=== PATIENT | female | born 1990 | race Caucasian/White ===

== ENCOUNTER 2016-06-05 16:52 | Emergency (ER) | payer MEDICARE, MEDICAID ==
[~2016-06-05] VITALS: Ht 162.6 cm; Wt 63.0 kg
[~2016-06-05 16:52] MED LIST: CALC300T4 PO; DIAZ5TAB PO; MIDO5TAB PO; NO MEDS
[2016-06-05 17:07] VITALS: BP 124/87
[2016-06-05] MEDS ORDERED: KETOROLAC 30 MG/1 ML IVPush ONE ×2 (17:30→18:00)
[2016-06-05] MEDS ORDERED: METOCLOPRAMIDE 5 MG/ML, 2ML IVPush ONE (17:30)
[2016-06-05] MEDS ORDERED: SODIUM CHLORIDE FLUSH 10ML SYR IVF ONE (17:30)
[2016-06-05] MEDS ORDERED: DIPHENHYDRAMINE 50 MG/ML, 1ML IVPush ONE (17:30)
[2016-06-05 17:33] LABS: HEMOGLOBIN 11.4 g/dL (11.7-16.4)
[2016-06-05 17:43] LABS: BLOOD UREA NITROGEN 27 mg/dL (7-18)
[2016-06-05] MEDS ORDERED: SODIUM CHLORIDE 0.9%, 500ML IVBOLUS ONE (18:00)
== END 2016-06-05 17:56 | disposition left against medical advice (07) ==
LOC: ED 17:20
DX: R51 Headache (principal); R11.0 Nausea; N19 Unspecified kidney failure; F17.210 Nicotine dependence, cigarettes, uncomplicated; Z88.0 Allergy status to penicillin; Z88.5 Allergy status to narcotic agent; Z88.1 Allergy status to other antibiotic agents
CPT/HCPCS: 36415; 80048; 82040; 85025; 99284

== ENCOUNTER 2016-09-14 04:03 | Emergency (ER) | payer MEDICARE, MEDICAID ==
[~2016-09-14] VITALS: Ht 162.6 cm; Wt 59.1 kg
[2016-09-14] MEDS ORDERED: SODIUM CHLORIDE 0.9% 1,000 ML IV ONE ×2 (05:16→06:25)
[2016-09-14] MEDS ORDERED: ONDANSETRON 2MG/ML, 2ML IVPush ONE (05:30)
[2016-09-14] MEDS ORDERED: MAALOX/HYOSCYAMINE/LIDOCAINE 45 ML BOTTLE PO ONE (05:30)
[2016-09-14] MEDS ORDERED: FAMOTIDINE 20 MG TABLET PO ONE (05:30)
[2016-09-14] MEDS ORDERED: ONDANSETRON ODT 4 MG PO ONE (05:30)
[2016-09-14] MEDS ORDERED: SODIUM CHLORIDE FLUSH 10ML SYR IVF ONE (05:30)
[2016-09-14] MEDS ORDERED: FAMOTIDINE 20 MG/2 ML IVP ONE (05:30)
[2016-09-14] MEDS ORDERED: FAMOTIDINE 20 MG TABLET ONE (05:32)
[2016-09-14] MEDS ORDERED: MAALOX/HYOSCYAMINE/LIDOCAINE 45 ML BOTTLE ONE (05:33)
[2016-09-14] MEDS ORDERED: ONDANSETRON ODT 4 MG ONE (05:33)
[2016-09-14 06:05] LABS: BLOOD UREA NITROGEN 42 mg/dL (7-18)
[2016-09-14] MEDS ORDERED: HYDROmorphone 1 MG/ML, 1ML ONE (06:08)
[2016-09-14 06:11] LABS: ASPARTATE AMINO TRANSFERASE 13 U/L (15-37)
[2016-09-14] MEDS: HYDROmorphone 1 MG/ML, 1ML IM ONE ×2 (06:29→06:30)
[2016-09-14 09:50] VITALS: BP 86/56
== END 2016-09-14 10:16 | disposition home or self-care (01) ==
LOC: ED 07:56
DX: R10.13 Epigastric pain (principal); K85.00 Idiopathic acute pancreatitis without necrosis or infection; N18.6 End stage renal disease; Z99.2 Dependence on renal dialysis
CPT/HCPCS: 36415; 74022; 76700; 80053; 83690; 84703; 85025; 96372; 99285; J1170; Q0162

== ENCOUNTER 2017-02-20 12:36 | Day surgery (SDC) | payer MEDICARE, MEDICAID ==
[~2017-02-20] VITALS: Ht 162.6 cm; Wt 56.7 kg
[2017-02-20 13:47] VITALS: BP 88/56
[2017-02-20] MEDS ORDERED: SODIUM CHLORIDE 0.9% 1,000 ML IV SCH (13:50)
[2017-02-20 14:00] LABS: HEMOGLOBIN 14.5 g/dL (11.7-16.4); WHITE BLOOD COUNT 5.9 x10^3/uL (3.4-10)
[2017-02-20 14:08] LABS: BLOOD UREA NITROGEN 35 mg/dL (7-18)
[2017-02-20] MEDS ORDERED: PROTAMINE SULFATE 10 MG/ML, 25ML ONE (16:53)
[2017-02-20] MEDS ORDERED: MIDAZOLAM 1 MG/ML, 5ML ONE (16:53)
[2017-02-20] MEDS ORDERED: NALOXONE 1 MG/ML, 2ML ONE (16:53)
[2017-02-20] MEDS ORDERED: FLUMAZENIL 0.1 MG/1 ML, 5ML ONE (16:53)
[2017-02-20] MEDS ORDERED: HEPARIN 1,000 UNITS/ML, 10ML ONE (16:53)
[2017-02-20] MEDS ORDERED: FENTANYL PF 100 MCG/2ML ONE (16:53)
[2017-02-20] MEDS ORDERED: NITROGLYCERIN 5 MG/ML, 10ML ONE (16:53)
[2017-02-20] MEDS ORDERED: VISIPAQUE 270 MG/ML, 50ML BOTTLE ONE (17:00)
[2017-02-20] MEDS ORDERED: LIDOCAINE 2%, 20ML ONE (17:13)
[2017-02-20] MEDS ORDERED: DIPHENHYDRAMINE 50 MG/ML, 1ML ONE (17:16)
== END 2017-02-20 18:25 ==
LOC: OUT 12:36
PROVIDERS: ATTEND Surgery
DX: T82.590A Other mechanical complication of surgically created arteriovenous fistula, initial encounter (principal); Y83.8 Other surgical procedures as the cause of abnormal reaction of the patient, or of later complication, without mention of misadventure at the time of the procedure; Y92.89 Other specified places as the place of occurrence of the external cause; N18.6 End stage renal disease; Z88.6 Allergy status to analgesic agent; Z91.010 Allergy to peanuts; Z88.8 Allergy status to other drugs, medicaments and biological substances; Z91.09 Other allergy status, other than to drugs and biological substances
CPT/HCPCS: 36415; 36901; 36907; 80048; 85025; 99156; 99157; C1725; C1751; C1769; C1894; J1200; J2250; J3010; J3490; J7030; Q9966; J1644; J2720; J2310

== ENCOUNTER 2017-05-27 13:36 | Observation (INO) | payer MEDICARE, MEDICAID ==
[~2017-05-27] VITALS: Ht 162.6 cm; Wt 60.3 kg
[2017-05-27] MEDS ORDERED: LORazepam 2 MG/ML, 1ML ONE (13:43)
[2017-05-27] MEDS ORDERED: LORazepam 2 MG/ML, 1ML IVPush STA (13:50)
[2017-05-27] MEDS ORDERED: SODIUM CHLORIDE FLUSH 10ML SYR IVF ONE (14:00)
[2017-05-27] MEDS ORDERED: SODIUM CHLORIDE 0.9% 1,000ML IVBOLUS ONE (14:00)
[2017-05-27 14:13] LABS: BASOPHILS # (AUTO) 0.04 x10^3/uL (0-0.1); BASOPHILS % (AUTO) 1 % (0-1); EOSINOPHILS # (AUTO) 0.16 x10^3/uL (0-0.4); EOSINOPHILS % (AUTO) 3 % (1-7); LYMPHOCYTES % (AUTO) 22 % (22-44); MD NO; MEAN CORPUSCULAR HEMOGLOBIN 34.5 pg (27.0-34.8); MEAN CORPUSCULAR HGB CONC 34.2 g/dL (32.4-35.8); MEAN PLATELET VOLUME 8.1 fL (7.4-10.4); MONOCYTES # (AUTO) 0.43 x10^3/uL (0.2-0.8); MONOCYTES % (AUTO) 7 % (2-9); NEUTROPHILS % (AUTO) 68 % (42-75); PLATELET COUNT 162 x10^3/uL (130-400); RED BLOOD COUNT 3.77 x10^6/uL (3.82-5.3); RED CELL DISTRIBUTION WIDTH 13.3 % (9.6-15.2)
[2017-05-27 14:24] LABS: ALBUMIN 4.3 g/dL (3.4-5.0); ANION GAP 12 mmol/L (5-15); CALCIUM 6.9 mg/dL (8.5-10.1); CHLORIDE 97 mmol/L (98-107)
[2017-05-27 14:30] LABS: FREE T4 (FREE THYROXINE) 0.94 ng/dL (0.76-1.46)
[2017-05-27] MEDS ORDERED: SODIUM POLYSTYRENE SULFONATE ORAL SUSP ONE ×2 (14:57→15:15)
[2017-05-27] MEDS ORDERED: DEXTROSE 50%, 50ML SYRINGE ONE (14:57)
[2017-05-27] MEDS ORDERED: CALCIUM CHLORIDE 10%, 10ML SYR ONE (14:57)
[2017-05-27] MEDS ORDERED: SODIUM BICARB 8.4%, 50ML SYRINGE ONE (14:57)
[2017-05-27] MEDS ORDERED: DEXTROSE 50%, 50ML SYRINGE IVPush ONE (15:00)
[2017-05-27] MEDS ORDERED: SODIUM POLY SULFONATE UDC 15 GM/60 ML PO ONE (15:00)
[2017-05-27] MEDS ORDERED: ALBUTEROL 0.5%, 20ML NPPB ONE (15:00)
[2017-05-27] MEDS ORDERED: SODIUM BICARB 8.4%, 50ML SYRINGE IVPush ONE (15:00)
[2017-05-27] MEDS ORDERED: INSULIN REGULAR 100 UNITS/ML, 3ML VIAL IVPush ONE (15:00)
[2017-05-27] MEDS ORDERED: CALCIUM CHLORIDE 10%, 10ML SYR IVPush ONE (15:00)
[2017-05-27] MEDS ORDERED: LABETALOL 5MG/ML, 20ML IVPush PRN (15:30)
[2017-05-27] MEDS ORDERED: BISACODYL 10 MG SUPP PR PRN (15:30)
[2017-05-27] MEDS ORDERED: DOCUSATE 100 MG CAPSULE PO PRN (15:30)
[2017-05-27] MEDS ORDERED: ONDANSETRON 2MG/ML, 2ML IVPush PRN (15:30)
[2017-05-27] MEDS ORDERED: ONDANSETRON ODT 4 MG PO PRN (15:30)
[2017-05-27 16:00] VITALS: BP 82/42
[2017-05-27 16:18] LABS: ANION GAP 14 mmol/L (5-15); CALCIUM 7.1 mg/dL (8.5-10.1); CHLORIDE 102 mmol/L (98-107); IRON LEVEL 34 mcg/dL (50-170); TOTAL IRON BINDING CAPACITY 183 mcg/dL (250-450)
[2017-05-27 16:19] LABS: % IRON SATURATION 19 % (20-55)
[2017-05-27] MEDS ORDERED: HYDROmorphone 1 MG/ML, 1ML IV ONE (17:00)
[2017-05-27 17:30] VITALS: BP 93/67
[2017-05-27] MEDS ORDERED: KETOROLAC 30 MG/1 ML ONE (20:17)
[2017-05-27] MEDS ORDERED: KETOROLAC 30 MG/1 ML IVPush PRN (20:30)
[2017-05-28 08:06] VITALS: BP 91/62
== END 2017-05-28 15:00 | disposition home or self-care (01) ==
LOC: ED 14:12 → UNDOADMIN 14:50 → EDIP 14:50 → 4WST 15:30 → EDIP 15:47 → 4WST 15:47 → UNDODISIN 05-28 10:20
PROVIDERS: ADMIT Internal Medicine; ATTEND Internal Medicine
DX: N18.6 End stage renal disease (principal); E87.5 Hyperkalemia; I95.9 Hypotension, unspecified; E87.1 Hypo-osmolality and hyponatremia; D53.9 Nutritional anemia, unspecified; R11.0 Nausea; F17.210 Nicotine dependence, cigarettes, uncomplicated; R17 Unspecified jaundice; Z99.2 Dependence on renal dialysis
CPT/HCPCS: 36415; 80048; 82040; 82140; 83540; 83550; 84439; 84443; 84481; 84703; 85025; 93005; 96361; 96374; 96375; 99291; G0378; J1170; J1885; J2060; J2405; J7030

== ENCOUNTER 2017-06-11 09:45 | Inpatient (IN) | payer MEDICARE, MEDICAID ==
[~2017-06-11] VITALS: Ht 162.6 cm; Wt 58.0 kg
[2017-06-11] MEDS ORDERED: CALC200T3 PO (10:54)
[2017-06-11] MEDS ORDERED: ONDANSETRON ODT 4 MG PO ONE (11:30)
[2017-06-11 11:31] LABS: BASOPHILS # (AUTO) 0.02 x10^3/uL (0-0.1); BASOPHILS % (AUTO) 0 % (0-1); EOSINOPHILS # (AUTO) 0.18 x10^3/uL (0-0.4); EOSINOPHILS % (AUTO) 3 % (1-7); LYMPHOCYTES % (AUTO) 26 % (22-44); MD NO; MEAN CORPUSCULAR HEMOGLOBIN 34.5 pg (27.0-34.8); MEAN CORPUSCULAR HGB CONC 34.3 g/dL (32.4-35.8); MEAN CORPUSCULAR VOLUME 100.5 fL (80-100); MEAN PLATELET VOLUME 7.9 fL (7.4-10.4); MONOCYTES # (AUTO) 0.32 x10^3/uL (0.2-0.8); MONOCYTES % (AUTO) 6 % (2-9); NEUTROPHILS # (AUTO) 3.84 x10^3/uL (1.8-6.8); NEUTROPHILS % (AUTO) 66 % (42-75); PLATELET COUNT 180 x10^3/uL (130-400); RED BLOOD COUNT 3.77 x10^6/uL (3.82-5.3); RED CELL DISTRIBUTION WIDTH 12.6 % (9.6-15.2)
[2017-06-11 11:42] LABS: ALANINE AMINOTRANSFERASE 18 U/L (12-78); ALBUMIN 4.7 g/dL (3.4-5.0); ANION GAP 17 mmol/L (5-15); CALCIUM 6.9 mg/dL (8.5-10.1); CHLORIDE 96 mmol/L (98-107)
[2017-06-11] MEDS ORDERED: ONDANSETRON ODT 4 MG ONE (11:43)
[2017-06-11] MEDS ORDERED: OXYcodone/APAP 10/325MG TABLET ONE (11:43)
[2017-06-11 11:44] LABS: ALKALINE PHOSPHATASE 112 U/L (45-117); BILIRUBIN,TOTAL 0.4 mg/dL (0.2-1.0); TOTAL PROTEIN 8.7 g/dL (6.4-8.2)
[2017-06-11] MEDS: OXYcodone/APAP 10/325MG TABLET PO ONE ×2 (11:54→11:55)
[2017-06-11] MEDS ORDERED: ONDANSETRON 2MG/ML, 2ML IVPush PRN (14:30)
[2017-06-11] MEDS ORDERED: ONDANSETRON ODT 4 MG PO PRN (14:30)
[2017-06-11] MEDS ORDERED: ACETAMINOPHEN 325 MG TABLET PO PRN (14:30)
[2017-06-11 14:42] VITALS: BP 98/66
[2017-06-11] MEDS: HYDROmorphone 2 MG/ML, 1ML IVPush PRN ×3 (14:50→21:55)
[2017-06-11] MEDS ORDERED: ALBUMIN HUMAN 25% 100 ML IV PRN (15:30)
[2017-06-11] MEDS ORDERED: ALBUMIN HUMAN 25% 50 ML IV PRN (15:30)
[2017-06-11] MEDS: ONDANSETRON 2MG/ML, 2ML IVPush PRN (18:13)
[2017-06-11 19:23] VITALS: BP 90/56
[2017-06-12] MEDS: ONDANSETRON 2MG/ML, 2ML IVPush PRN (00:19)
[2017-06-12 01:51] VITALS: BP 79/49
[2017-06-12] MEDS: HYDROmorphone 2 MG/ML, 1ML IVPush PRN (02:00)
[2017-06-12] MEDS ORDERED: CALCIUM CARBONATE 500 MG TAB.CHEW PO SCH (09:00)
== END 2017-06-12 03:25 | disposition left against medical advice (07) | DRG 640 ==
LOC: ED 12:06 → EDIP 12:07 → ED 12:16 → 4WST 13:29
PROVIDERS: ADMIT Hospitalist; ATTEND Hospitalist
DX: E87.5 Hyperkalemia (principal); N18.6 End stage renal disease; E83.51 Hypocalcemia; N25.81 Secondary hyperparathyroidism of renal origin; E83.52 Hypercalcemia; D63.8 Anemia in other chronic diseases classified elsewhere; E89.0 Postprocedural hypothyroidism; F41.1 Generalized anxiety disorder; Z99.2 Dependence on renal dialysis; Z87.891 Personal history of nicotine dependence; Z91.19 Patient's noncompliance with other medical treatment and regimen; Z80.8 Family history of malignant neoplasm of other organs or systems; Z76.5 Malingerer [conscious simulation]
CPT/HCPCS: 36415; 71045; 80053; 82330; 83605; 85025; 87040; 93005; 99285; J1170; J2405; Q0162

== ENCOUNTER 2017-07-20 12:49 | Emergency (ER) | payer MEDICARE, MEDICAID ==
[~2017-07-20] VITALS: Ht 154.9 cm; Wt 58.2 kg
[~2017-07-20 12:49] MED LIST changes: +CALC200T3 PO
[2017-07-20 13:00] VITALS: BP 91/58
[2017-07-20 15:51] LABS: BASOPHILS # (AUTO) 0.04 x10^3/uL (0-0.1); BASOPHILS % (AUTO) 1 % (0-1); EOSINOPHILS # (AUTO) 0.19 x10^3/uL (0-0.4); EOSINOPHILS % (AUTO) 4 % (1-7); LYMPHOCYTES # (AUTO) 1.13 x10^3/uL (1-3.4); LYMPHOCYTES % (AUTO) 22 % (22-44); MD NO; MEAN CORPUSCULAR HEMOGLOBIN 33.3 pg (27.0-34.8); MEAN CORPUSCULAR HGB CONC 33.8 g/dL (32.4-35.8); MEAN CORPUSCULAR VOLUME 98.3 fL (80-100); MEAN PLATELET VOLUME 7.4 fL (7.4-10.4); MONOCYTES # (AUTO) 0.38 x10^3/uL (0.2-0.8); MONOCYTES % (AUTO) 7 % (2-9); NEUTROPHILS # (AUTO) 3.42 x10^3/uL (1.8-6.8); NEUTROPHILS % (AUTO) 66 % (42-75); PLATELET COUNT 165 x10^3/uL (130-400); RED BLOOD COUNT 3.76 x10^6/uL (3.82-5.3); RED CELL DISTRIBUTION WIDTH 12.8 % (9.6-15.2)
[2017-07-20 16:10] LABS: ALANINE AMINOTRANSFERASE 11 U/L (12-78); ALBUMIN 3.8 g/dL (3.4-5.0); ANION GAP 9 mmol/L (5-15); CALCIUM 8.4 mg/dL (8.5-10.1); CHLORIDE 98 mmol/L (98-107); CREATININE 6.28 mg/dL (0.55-1.02)
[2017-07-20 16:15] LABS: ALKALINE PHOSPHATASE 84 U/L (45-117); BILIRUBIN,TOTAL 0.4 mg/dL (0.2-1.0); TOTAL PROTEIN 7.3 g/dL (6.4-8.2)
== END 2017-07-20 16:33 | disposition home or self-care (01) ==
LOC: ED 15:20
DX: S39.012A Strain of muscle, fascia and tendon of lower back, initial encounter (principal); G44.40 Drug-induced headache, not elsewhere classified, not intractable; R11.10 Vomiting, unspecified; N18.6 End stage renal disease; Z99.2 Dependence on renal dialysis; X58.XXXA Exposure to other specified factors, initial encounter; Y93.89 Activity, other specified; Y92.89 Other specified places as the place of occurrence of the external cause; Y99.8 Other external cause status
CPT/HCPCS: 36415; 80053; 84703; 85025; 99284

== ENCOUNTER 2017-07-29 00:53 | Emergency (ER) | payer MEDICARE, MEDICAID ==
[~2017-07-29] VITALS: Ht 154.9 cm; Wt 57.9 kg
[2017-07-29] MEDS ORDERED: ONDANSETRON ODT 4 MG PO ONE (02:00)
[2017-07-29] MEDS ORDERED: DICYCLOMINE 10 MG/ML, 2ML IM ONE (02:00)
[2017-07-29] MEDS ORDERED: PROMETHAZINE 25 MG/ML, 1ML IM ONE (02:00)
[2017-07-29 02:06] LABS: BASOPHILS # (AUTO) 0.02 x10^3/uL (0-0.1); BASOPHILS % (AUTO) 0 % (0-1); EOSINOPHILS # (AUTO) 0.24 x10^3/uL (0-0.4); EOSINOPHILS % (AUTO) 5 % (1-7); LYMPHOCYTES # (AUTO) 1.64 x10^3/uL (1-3.4); LYMPHOCYTES % (AUTO) 34 % (22-44); MD NO; MEAN CORPUSCULAR HEMOGLOBIN 34.1 pg (27.0-34.8); MEAN CORPUSCULAR HGB CONC 34.7 g/dL (32.4-35.8); MEAN CORPUSCULAR VOLUME 98.4 fL (80-100); MEAN PLATELET VOLUME 7.7 fL (7.4-10.4); MONOCYTES % (AUTO) 6 % (2-9); NEUTROPHILS # (AUTO) 2.62 x10^3/uL (1.8-6.8); NEUTROPHILS % (AUTO) 54 % (42-75); PLATELET COUNT 164 x10^3/uL (130-400); RED BLOOD COUNT 3.28 x10^6/uL (3.82-5.3); RED CELL DISTRIBUTION WIDTH 12.6 % (9.6-15.2)
[2017-07-29] MEDS ORDERED: PROMETHAZINE 25 MG/ML, 1ML ONE (02:10)
[2017-07-29] MEDS ORDERED: ONDANSETRON ODT 4 MG ONE (02:10)
[2017-07-29 02:14] VITALS: BP 103/70
[2017-07-29 02:15] LABS: ALANINE AMINOTRANSFERASE 21 U/L (12-78); ALBUMIN 3.7 g/dL (3.4-5.0); ANION GAP 11 mmol/L (5-15); CALCIUM 7.4 mg/dL (8.5-10.1); CHLORIDE 97 mmol/L (98-107); CREATININE 9.85 mg/dL (0.55-1.02)
[2017-07-29 02:19] LABS: ALKALINE PHOSPHATASE 80 U/L (45-117); BILIRUBIN,TOTAL 0.4 mg/dL (0.2-1.0); TOTAL PROTEIN 6.9 g/dL (6.4-8.2)
== END 2017-07-29 03:07 | disposition home or self-care (01) ==
LOC: ED 01:52
DX: N18.6 End stage renal disease (principal); E86.0 Dehydration; R10.12 Left upper quadrant pain; G40.909 Epilepsy, unspecified, not intractable, without status epilepticus; F41.9 Anxiety disorder, unspecified; E87.5 Hyperkalemia; F17.200 Nicotine dependence, unspecified, uncomplicated; Z99.2 Dependence on renal dialysis
CPT/HCPCS: 36415; 80053; 84703; 85025; 99284; Q0162

== ENCOUNTER 2017-07-31 03:53 | Inpatient (IN) | payer MEDICARE, MEDICAID ==
[~2017-07-31] VITALS: Ht 154.9 cm; Wt 58.0 kg
[2017-07-31 04:30] LABS: BASOPHILS # (AUTO) 0.09 x10^3/uL (0-0.1); BASOPHILS % (AUTO) 2 % (0-1); EOSINOPHILS # (AUTO) 0.24 x10^3/uL (0-0.4); EOSINOPHILS % (AUTO) 5 % (1-7); LYMPHOCYTES # (AUTO) 1.46 x10^3/uL (1-3.4); LYMPHOCYTES % (AUTO) 30 % (22-44); MD NO; MEAN CORPUSCULAR HEMOGLOBIN 33.6 pg (27.0-34.8); MEAN CORPUSCULAR HGB CONC 34.2 g/dL (32.4-35.8); MEAN CORPUSCULAR VOLUME 98.4 fL (80-100); MEAN PLATELET VOLUME 8.1 fL (7.4-10.4); MONOCYTES # (AUTO) 0.23 x10^3/uL (0.2-0.8); MONOCYTES % (AUTO) 5 % (2-9); NEUTROPHILS # (AUTO) 2.93 x10^3/uL (1.8-6.8); NEUTROPHILS % (AUTO) 59 % (42-75); PLATELET COUNT 163 x10^3/uL (130-400); RED BLOOD COUNT 3.05 x10^6/uL (3.82-5.3); RED CELL DISTRIBUTION WIDTH 12.7 % (9.6-15.2)
[2017-07-31 04:36] LABS: ALANINE AMINOTRANSFERASE 29 U/L (12-78); ALBUMIN 3.6 g/dL (3.4-5.0); ANION GAP 17 mmol/L (5-15); CALCIUM 7.4 mg/dL (8.5-10.1); CHLORIDE 101 mmol/L (98-107)
[2017-07-31 04:38] LABS: ALKALINE PHOSPHATASE 82 U/L (45-117); BILIRUBIN,TOTAL 0.6 mg/dL (0.2-1.0); TOTAL PROTEIN 6.6 g/dL (6.4-8.2)
[2017-07-31 05:43] VITALS: BP 123/86
[2017-07-31] MEDS ORDERED: ACETAMINOPHEN 325 MG TABLET PO PRN (07:30)
[2017-07-31] MEDS ORDERED: ONDANSETRON 2MG/ML, 2ML IVPush PRN (07:30)
[2017-07-31] MEDS ORDERED: HYDROcodone/APAP 5/325 TABLET PO PRN (07:30)
[2017-07-31] MEDS ORDERED: ONDANSETRON ODT 4 MG PO PRN (07:30)
[2017-07-31] MEDS ORDERED: PHOSLO PO (07:32)
[2017-07-31] MEDS ORDERED: CALCIUM CARBONATE 500 MG TAB.CHEW PO SCH (09:00)
[2017-07-31] MEDS ORDERED: NICOTINE 7 MG/24 HR PATCH.TD24 TD SCH (09:00)
[2017-07-31] MEDS ORDERED: DARBEPOETIN 100 MCG/ML SQ SCH (11:00)
== END 2017-07-31 17:05 | disposition left against medical advice (07) | DRG 314 ==
LOC: ED 05:40 → EDIP 06:55 → 4WST 08:22
PROVIDERS: ADMIT Internal Medicine; ATTEND Internal Medicine
PROC: 5A1D70Z Performance of Urinary Filtration, Intermittent, Less than 6 Hours Per Day (ICD-10-PCS; principal; 2017-07-31)
DX: T82.510A Breakdown (mechanical) of surgically created arteriovenous fistula, initial encounter (principal); N18.6 End stage renal disease; I95.89 Other hypotension; T82.848A Pain due to vascular prosthetic devices, implants and grafts, initial encounter; E83.51 Hypocalcemia; N25.0 Renal osteodystrophy; N25.81 Secondary hyperparathyroidism of renal origin; Y83.8 Other surgical procedures as the cause of abnormal reaction of the patient, or of later complication, without mention of misadventure at the time of the procedure; Y92.89 Other specified places as the place of occurrence of the external cause; D63.1 Anemia in chronic kidney disease; F17.210 Nicotine dependence, cigarettes, uncomplicated; F41.1 Generalized anxiety disorder; G40.909 Epilepsy, unspecified, not intractable, without status epilepticus; Z99.2 Dependence on renal dialysis; G89.29 Other chronic pain; Z53.21 Procedure and treatment not carried out due to patient leaving prior to being seen by health care provider
CPT/HCPCS: 36415; 71045; 80053; 85025; 86704; 86706; 86803; 87340; 93005; 99285

== ENCOUNTER 2017-08-23 04:46 | Emergency (ER) | payer MEDICARE, MEDICAID ==
[~2017-08-23] VITALS: Ht 162.6 cm; Wt 57.4 kg
[~2017-08-23 04:46] MED LIST changes: +PHOSLO PO
[2017-08-23 04:48] VITALS: BP 127/88
[2017-08-23] MEDS ORDERED: ONDANSETRON ODT 4 MG PO ONE (05:00)
[2017-08-23] MEDS ORDERED: ONDANSETRON ODT 4 MG ONE (05:01)
== END 2017-08-23 06:38 | disposition left against medical advice (07) ==
LOC: ED 06:32
DX: R10.9 Unspecified abdominal pain (principal); R11.10 Vomiting, unspecified; Z53.21 Procedure and treatment not carried out due to patient leaving prior to being seen by health care provider
CPT/HCPCS: 93005; Q0162

== ENCOUNTER 2017-08-26 17:27 | Emergency (ER) | payer MEDICARE, MEDICAID ==
[~2017-08-26] VITALS: Ht 157.5 cm; Wt 58.4 kg
[2017-08-26 18:32] LABS: BASOPHILS # (AUTO) 0.05 x10^3/uL (0-0.1); BASOPHILS % (AUTO) 1 % (0-1); EOSINOPHILS % (AUTO) 4 % (1-7); LYMPHOCYTES % (AUTO) 26 % (22-44); MD NO; MEAN CORPUSCULAR HEMOGLOBIN 33.7 pg (27.0-34.8); MEAN CORPUSCULAR HGB CONC 34.5 g/dL (32.4-35.8); MEAN CORPUSCULAR VOLUME 97.6 fL (80-100); MEAN PLATELET VOLUME 7.7 fL (7.4-10.4); MONOCYTES # (AUTO) 0.32 x10^3/uL (0.2-0.8); MONOCYTES % (AUTO) 7 % (2-9); NEUTROPHILS # (AUTO) 3.13 x10^3/uL (1.8-6.8); NEUTROPHILS % (AUTO) 63 % (42-75); PLATELET COUNT 173 x10^3/uL (130-400); RED CELL DISTRIBUTION WIDTH 13.1 % (9.6-15.2)
[2017-08-26 18:39] LABS: ALBUMIN 3.7 g/dL (3.4-5.0); ANION GAP 12 mmol/L (5-15); CALCIUM 6.9 mg/dL (8.5-10.1); CHLORIDE 97 mmol/L (98-107)
[2017-08-26 20:16] VITALS: BP 121/74
== END 2017-08-26 20:42 | disposition home or self-care (01) ==
LOC: ED 18:52
DX: S39.012A Strain of muscle, fascia and tendon of lower back, initial encounter (principal); N92.1 Excessive and frequent menstruation with irregular cycle; F17.200 Nicotine dependence, unspecified, uncomplicated; Z88.1 Allergy status to other antibiotic agents; Z88.0 Allergy status to penicillin; Z88.5 Allergy status to narcotic agent; Z88.8 Allergy status to other drugs, medicaments and biological substances; W19.XXXA Unspecified fall, initial encounter; Y93.89 Activity, other specified; Y99.8 Other external cause status; Y92.89 Other specified places as the place of occurrence of the external cause
CPT/HCPCS: 36415; 72110; 80048; 82040; 84703; 85025; 99285

== ENCOUNTER 2017-09-06 15:03 | Emergency (ER) | payer MEDICARE, MEDICAID ==
[~2017-09-06] VITALS: Ht 154.9 cm; Wt 55.0 kg
[2017-09-06] MEDS ORDERED: ONDANSETRON ODT 4 MG PO ONE (15:30)
[2017-09-06] MEDS ORDERED: HYDROcodone/APAP 5/325 TABLET PO ONE (15:30)
[2017-09-06] MEDS ORDERED: ONDANSETRON ODT 4 MG ONE (15:39)
[2017-09-06] MEDS ORDERED: HYDROcodone/APAP 5/325 TABLET ONE (15:39)
[2017-09-06 15:51] LABS: BASOPHILS # (AUTO) 0.04 x10^3/uL (0-0.1); BASOPHILS % (AUTO) 1 % (0-1); EOSINOPHILS # (AUTO) 0.14 x10^3/uL (0-0.4); EOSINOPHILS % (AUTO) 4 % (1-7); LYMPHOCYTES # (AUTO) 0.93 x10^3/uL (1-3.4); LYMPHOCYTES % (AUTO) 25 % (22-44); MD NO; MEAN CORPUSCULAR HEMOGLOBIN 33.4 pg (27.0-34.8); MEAN CORPUSCULAR HGB CONC 34.1 g/dL (32.4-35.8); MEAN CORPUSCULAR VOLUME 97.9 fL (80-100); MEAN PLATELET VOLUME 7.9 fL (7.4-10.4); MONOCYTES # (AUTO) 0.29 x10^3/uL (0.2-0.8); MONOCYTES % (AUTO) 8 % (2-9); NEUTROPHILS # (AUTO) 2.38 x10^3/uL (1.8-6.8); NEUTROPHILS % (AUTO) 63 % (42-75); PLATELET COUNT 169 x10^3/uL (130-400); RED BLOOD COUNT 3.87 x10^6/uL (3.82-5.3); RED CELL DISTRIBUTION WIDTH 13.7 % (9.6-15.2)
[2017-09-06 16:03] LABS: ALANINE AMINOTRANSFERASE 20 U/L (12-78); ALBUMIN 4.3 g/dL (3.4-5.0); ANION GAP 9 mmol/L (5-15); CHLORIDE 98 mmol/L (98-107); CREATININE 8.41 mg/dL (0.55-1.02)
[2017-09-06 16:07] LABS: ALKALINE PHOSPHATASE 110 U/L (45-117); BILIRUBIN,TOTAL 0.5 mg/dL (0.2-1.0)
[2017-09-06] MEDS ORDERED: PROMETHAZINE 25 MG/ML, 1ML ONE (17:11)
[2017-09-06] MEDS ORDERED: PROMETHAZINE 25 MG/ML, 1ML IM ONE (17:30)
[2017-09-06 17:55] VITALS: BP 92/56
== END 2017-09-06 17:56 | disposition home or self-care (01) ==
LOC: ED 17:50
DX: R11.2 Nausea with vomiting, unspecified (principal); E87.5 Hyperkalemia; N18.9 Chronic kidney disease, unspecified; Z99.2 Dependence on renal dialysis; F17.200 Nicotine dependence, unspecified, uncomplicated
CPT/HCPCS: 36415; 80053; 83690; 84703; 85025; 99284; Q0162